=== PATIENT | male | born 1985 | race Caucasian/White ===

== ENCOUNTER 2017-07-27 00:20 | Emergency (ER) | payer SELFPAY ==
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
[2017-07-27] MEDS ORDERED: MORPHINE SULFATE 10 MG/ML INJ IM ONE (01:35)
[2017-07-27] MEDS ORDERED: HYDROMORPHONE HCL INJ/PF 2 MG/ML AMPULE IM ONE (01:38)
[2017-07-27] MEDS ORDERED: HYDROMORPHONE HCL INJ/PF 2 MG/ML AMPULE ONE (01:41)
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
[2017-07-27] MEDS ORDERED: DIAZEPAM INJ 10 MG/2 ML DISP.SYRIN IM ONE (02:53)
[2017-07-27] MEDS ORDERED: HYDROCODONE/ACETAMINOPHEN 5-325 MG (6 TAB/ER DISP) PO PRN (03:56)
[2017-07-27 04:41] VITALS: BP 119/72
== END 2017-07-27 04:57 | disposition home or self-care (01) ==
LOC: ER 00:20
DX: S06.9X9A Unspecified intracranial injury with loss of consciousness of unspecified duration, initial encounter (principal); M25.552 Pain in left hip; M54.5 Low back pain; M54.2 Cervicalgia; R51 Headache; V23.4XXA Motorcycle driver injured in collision with car, pick-up truck or van in traffic accident, initial encounter; Y92.410 Unspecified street and highway as the place of occurrence of the external cause; F17.200 Nicotine dependence, unspecified, uncomplicated; Z87.442 Personal history of urinary calculi
CPT/HCPCS: 99284; 96372; 73502; 72110; 70450; 72125; 72131; J3360; J1170

== ENCOUNTER 2017-10-08 23:47 | Emergency (ER) | payer SELFPAY ==
[2017-10-09] MEDS ORDERED: LIDOCAINE 1% INJ-PF (10 MG/ML) 30 ML SDV INJ ONE (01:17)
[2017-10-09] MEDS ORDERED: CEFTRIAXONE INJ 1000 MG VIAL IM ONE (01:17)
[2017-10-09] MEDS ORDERED: ERYTHROMYCIN 0.5% OPH OINTMENT 3.5 GM (ER DISP) OD PRN (01:17)
[2017-10-09] MEDS ORDERED: OXYCODONE-ACETAMINOPHEN 5-325 MG TABLET PO ONE (01:17)
--- NOTE | 2017-10-09 01:21 | ER Document Report ---
HPI - HPI Patient complains to provider of: Abscess Onset: Other - 4 days Onset/Duration: Persistent Quality of pain: Achy Pain Level: 4 Context: Patient presents complaining of abscess to the left elbow and swelling to the right eyelid. Patient denies any use of glasses or contact lenses. Patient states that he had a pustule that developed to the eyelid and that he attempted to squeeze the lesion and did have some purulent drainage. Patient states that he has had matting to his eye in the morning. 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 denies: Fever Exacerbated by: Movement Relieved by: Denies Similar symptoms previously: Yes Recently seen / treated by doctor: No - ROS ROS below otherwise negative: Yes Systems Reviewed and Negative: Yes All other systems reviewed and negative - CONSTITUTIONAL Constitutional: DENIES: Fever, Chills - EENT EENT: REPORTS: Eye problems. DENIES: Sore Throat, Ear Pain - MUSCULOSKELETAL Musculoskeletal: REPORTS: Extremity pain, Swelling - DERM Skin Color: Erythema Notes: Abscess Past Medical History - General Information source: Patient - Social History Smoking Status: Current Every Day Smoker Chew tobacco use (# tins/day): No Smoking Education Provided: Yes Frequency of alcohol use: Social Drug Abuse: None Occupation: None Lives with: Spouse/Significant other Family History: Reviewed & Not Pertinent Patient has suicidal ideation: No Patient has homicidal ideation: No Renal/ Medical History: Reports: Hx Kidney Stones. Denies: Hx Peritoneal Dialysis Surgical Hx: Negative Past Surgical History: Reports: Hx Thyroid Surgery - lymph node removal in neck. , Other - Lymph node surgery - Immunizations Hx Diphtheria, Pertussis, Tetanus Vaccination: No Vertical Provider Document - CONSTITUTIONAL Agree With Documented VS: Yes Exam Limitations: No Limitations General Appearance: WD/WN, No Apparent Distress - INFECTION CONTROL TRAVEL OUTSIDE OF THE [place] IN LAST 30 DAYS: No - HEENT HEENT: Atraumatic, Normocephalic Notes: Hordeolum to lateral canthus of right eye, mild injection of scleral, extraocular movements intact. No chemosis, proptosis, or ptosis. No orbital swelling or erythema. - NECK Neck: Normal Inspection, Supple - RESPIRATORY Respiratory: Breath Sounds Normal, No Respiratory Distress - CARDIOVASCULAR Cardiovascular: Regular Rate, Regular Rhythm - MUSCULOSKELETAL/EXTREMETIES Musculoskeletal/Extremeties: MAEW, FROM, Tender - Left forearm, Edema - NEURO Level of Consciousness: Awake, Alert, Appropriate Motor/Sensory: No Motor Deficit - DERM Integumentary: Warm, Dry, Abscess - Proximal third of left forearm, patient with full range of motion to the left elbow, no concern for septic joint Course - Re-evaluation Re-evalutation: 10/09/17 01:52 After incision and drainage procedure was performed on the left arm, patient had been squeezing his eyes closed tightly during the procedure and then the swollen area to his eyelid started to drain spontaneously. Culture was obtained from this drainage. - Vital Signs Vital signs: Temp Pulse Resp BP Pulse Ox 97.9 F 100 18 127/79 H 98 10/09/17 00:00 10/09/17 00:00 10/09/17 00:00 10/09/17 00:00 10/09/17 00:00 Procedures - Incision and Drainage Left Arm Type: Simple Anesthetic type: 1% Lidocaine Blade size: 11 I&D procedure: Betadine prep applied Incision Method: Incision made by scalpel Amount/type of drainage: Small amount of purulent drainage Adult Front & Back picture: 1 - Abscess Discharge - Discharge Clinical Impression: Abscess, Encounter for incision and drainage procedure Sty Qualifiers: Laterality: right Eyelid: unspecified eyelid Qualified Code(s): H00.013 - Hordeolum externum right eye, unspecified eyelid Condition: Stable Disposition: HOME, SELF-CARE Instructions: Abscess ([facility]), Cephalexin ([facility]), Oral Narcotic Medication ([facility]), Post Incision and Drainage, Sty ([facility]), Trimethoprim-Sulfa ([facility]), Warm Packs ([facility] ) Additional Instructions: Return immediately for any new or worsening symptoms, or if not improving Followup with your primary care provider, call tomorrow to make a followup appointment Avoid picking and squeezing skin lesions Apply warm compresses to right eye Prescriptions: Cephalexin Monohydrate [Keflex 500 mg Capsule] 500 mg PO Q6H 5 Days capsule Oxycodone HCl/Acetaminophen [Percocet 5-325 mg Tablet] 1 tab PO ASDIR PRN #10 tablet PRN Reason: Sulfamethoxazole/Trimethoprim [Bactrim Ds Tablet] 1 each PO BID #20 tablet Forms: Smoking Cessation Education Referrals: [facility] [Provider Group] - Follow up as needed [facility] [Provider Group] - Follow up as needed
[2017-10-09 02:02] VITALS: BP 135/76
== END 2017-10-09 02:10 | disposition home or self-care (01) ==
LOC: ER 23:47
DX: L02.414 Cutaneous abscess of left upper limb (principal); H00.013 Hordeolum externum right eye, unspecified eyelid; F17.200 Nicotine dependence, unspecified, uncomplicated
CPT/HCPCS: 99283; 87070; 87205; 87077; 87186; 10060; J3490; J0696

== ENCOUNTER 2018-05-26 10:35 | Emergency (ER) | payer SELFPAY ==
[2018-05-26 10:44] VITALS: BP 127/71
[2018-05-26] MEDS ORDERED: KETOROLAC TROMETHAMINE INJ/PF 30 MG/1 ML SDV IV ONE (13:00)
[2018-05-26] MEDS ORDERED: NORMAL SALINE 1000 ML 1,000 ML IV ONE (13:00)
--- NOTE | 2018-05-26 13:04 | ER Document Report ---
ED Medical Screen (RME) - General Chief Complaint: Breathing Difficulty Stated Complaint: DIFFICULTY BREATHING Time Seen by Provider: 05/26/18 12:59 Mode of Arrival: Medic Information source: Patient Notes: Healthy 33-year-old male who presents via EMS for body aches, fevers, chills, cough and congestion. Patient reports his symptoms have been going on for 4 days. He reports he took some Aleve yesterday, has not taken Tylenol as it upsets his stomach. Patient denies any past medical history other than anxiety. Difficulty obtaining through history as patient is very upset and being ve rbally aggressive to staff. Exam: Tachycardic. Lung sounds clear to auscultation bilaterally. I have greeted and performed a rapid initial assessment of this patient. A comprehensive ED assessment and evaluation of the patient, analysis of test results and completion of the medical decision making process will be conducted by additional ED providers. Dictation of this chart was performed using voice recognition software; therefore, there may be some unintended grammatical errors. TRAVEL OUTSIDE OF THE [place] IN LAST 30 DAYS: No - Related Data Allergies/Adverse Reactions: No Known Allergies Allergy (Verified 05/26/18 10:41) Past Medical History Renal/ Medical History: Reports: Hx Kidney Stones. Denies: Hx Peritoneal Dialysis Past Surgical History: Reports: Hx Thyroid Surgery - lymph node removal in neck., Other - Lymph node surgery - Immunizations Hx Diphtheria, Pertussis, Tetanus Vaccination: No Physical Exam - Vital signs Vitals: Temp Pulse Resp BP Pulse Ox 99.9 F 118 H 20 127/71 H 100 05/26/18 10:42 05/26/18 10:42 05/26/18 10:42 05/26/18 10:42 05/26/18 10:42 Course - Vital Signs Vital signs: Temp Pulse Resp BP Pulse Ox 99.9 F 118 H 20 127/71 H 100 05/26/18 10:42 05/26/18 10:42 05/26/18 10:42 05/26/18 10:42 05/26/18 10:42
--- NOTE | 2018-05-26 14:26 | RADIOLOGY REPORT (SQ) ---
EXAM DESCRIPTION: CHEST 2 VIEWS COMPLETED DATE/TIME: 05/26/2018 1:51 pm REASON FOR STUDY: sob, cough, fever COMPARISON: PA chest 03/02/2016 EXAM PARAMETERS: NUMBER OF VIEWS: two views TECHNIQUE: Digital Frontal and Lateral radiographic views of the chest acquired. RADIATION DOSE: NA LIMITATIONS: none FINDINGS: LUNGS AND PLEURA: 2 cm nodule versus infiltrate right upper lobe superimposed on the anter ior right 2nd clear space. Chest CT indicated for followup. No pleural effusion. No pneumothorax. MEDIASTINUM AND HILAR STRUCTURES: No masses or contour abnormalities. HEART AND VASCULAR STRUCTURES: Heart normal size. No evidence for failure. BONES: No acute findings. HARDWARE: None in the chest. OTHER: No other significant finding. IMPRESSION: 2 cm nodule versus infiltrate right upper lung for which CT chest is indicated for noheliao partha TECHNICAL DOCUMENTATION: JOB ID: [id number] [employer]- All Rights Reserved Reading location - IP/workstation name: [email or web address]
== END 2018-05-26 15:46 | disposition left against medical advice (07) ==
LOC: ER 10:35
DX: R06.00 Dyspnea, unspecified (principal); M79.10 Myalgia, unspecified site; R00.0 Tachycardia, unspecified; Z87.442 Personal history of urinary calculi
CPT/HCPCS: 71046; 99281

== ENCOUNTER 2018-06-11 02:41 | Emergency (ER) | payer SELFPAY ==
[2018-06-11] MEDS ORDERED: VANCOMYCIN HCL INJ 1000 MG VIAL IV ONE (02:59)
[2018-06-11] MEDS ORDERED: PIPERACILLIN/TAZOBACTAM 3.375 GM VIAL IV ONE (03:00)
[2018-06-11] MEDS ORDERED: NORMAL SALINE 1000 ML 1,000 ML IV ONE (03:00)
[2018-06-11 03:07] LABS: ABSOLUTE LYMPHOCYTES (AUTO) 1.6 10^3/uL (0.5-4.7); ABSOLUTE MONOCYTES (AUTO) 1.3 10^3/uL (0.1-1.4); ABSOLUTE NEUT (AUTO) 8.3 10^3/uL (1.7-8.2); BASOPHILS % (AUTO) 0.3 % (0-2); EOSINOPHILS % (AUTO) 0.2 % (0-6); HEMATOCRIT 33.3 % (37.9-51.0); HEMOGLOBIN 11.2 g/dL (13.5-17.0); LYMPHOCYTES % (AUTO) 14.4 % (13-45); MEAN CORPUSCULAR HEMOGLOBIN 29.1 pg (27.0-33.4); MEAN CORPUSCULAR HGB CONC 33.7 g/dL (32.0-36.0); MEAN CORPUSCULAR VOLUME 86 fl (80-97); MONOCYTES % (AUTO) 11.8 % (3-13); PLATELET COUNT 534 10^3/uL (150-450); RED BLOOD COUNT 3.86 10^6/uL (4.35-5.55); RED CELL DISTRIBUTION WIDTH 13.9 % (11.5-14.0); SEGMENTED NEUTROPHILS % (AUTO) 73.3 % (42-78); TOTAL CELLS COUNTED % (AUTO) 100 %; WHITE BLOOD COUNT 11.3 10^3/uL (4.0-10.5)
--- NOTE | 2018-06-11 03:09 | ER Document Report ---
Addendum entered and electronically signed by MARGARET EVANS NP 06/11/18 09:55: Course - Re-evaluation Re-evalutation: 06/11/18 09:54 Transport is outside to transport patient to [facility]. Patient is alert, oriented, vital signs are stable at time of transport and patient is in stable condition for the transport. - Vital Signs Vital signs: Temp Pulse Resp BP Pulse Ox 99.3 F 124 H 25 H 138/81 H 97 06/11/18 09:41 06/11/18 02:46 06/11/18 09:18 06/11/18 09:18 06/11/18 09:18 - Laboratory Result Diagrams: 06/11/18 02:48 06/11/18 02:48 Laboratory results interpreted by me: 06/11/18 06/11/18 06/11/18 02:48 02:48 03:05 WBC 11.3 H RBC 3.86 L Hgb 11.2 L Hct 33.3 L Plt Count 534 H Absolute Neutrophils 8.3 H APTT Sodium 136.1 L Chloride 95 L BUN 21 H Lactic Acid < 0.5 L Alkaline Phosphatase 127 H Total Protein 9.1 H Urine Blood 06/11/18 06/11/18 03:05 04:25 WBC RBC Hgb Hct Plt Count Absolute Neutrophils APTT 47.7 H Sodium Chloride BUN Lactic Acid Alkaline Phosphatase Total Protein Urine Blood MODERATE H Original Note: ED General - General Stated Complaint: HIP PAIN Time Seen by Provider: 06/11/18 02:49 Notes: Patient is a 33-year-old male that comes to the emergency department for chief complaint of pain in his left hip, body aches, and a rash that developed over his lower legs over the past 2 days. He comes by EMS, he was found to have a fever of 101.8, he was given 975 mg of Tylenol. Patient tells me that he [facility] secondary to IV drug abuse, he left AGAINST MEDICAL ADVICE 1 week ago. Patient's only reported past medical history otherwise is kidney stones and a lymph node biopsy. TRAVEL OUTSIDE OF THE [place] IN LAST 30 DAYS: No - Related Data Allergies/Adverse Reactions: No Known Allergies Allergy (Verified 05/26/18 10:41) Past Medical History - General Information source: Patient - Social History Smoking Status: Current Every Day Smoker Frequency of alcohol use: Social Drug Abuse: Heroin Lives with: Spouse/Significant other Family History: Reviewed & Not Pertinent Renal/ Medical History: Reports: Hx Kidney Stones. Denies: Hx Peritoneal Dialysis Past Surgical History: Reports: Hx Thyroid Surgery - lymph node removal in neck., Other - Lymph node surgery - Immunizations Hx Diphtheria, Pertussis, Tetanus Vaccination: No Review of Systems - Review of Systems Constitutional: See HPI EENT: No symptoms reported Cardiovascular: No symptoms reported Respiratory: No symptoms reported Gastrointestinal: No symptoms reported Genitourinary: No symptoms reported Male Genitourinary: No symptoms reported Musculoskeletal: See HPI Skin: No symptoms reported Hematologic/Lymphatic: No symptoms reported Neurological/Psychological: No symptoms reported Physical Exam - Vital signs Vitals: Temp Pulse Resp BP Pulse Ox 101.8 F H 124 H 14 156/90 H 97 06/11/18 02:46 06/11/18 02:46 06/11/18 02:46 06/11/18 02:46 06/11/18 02:46 - Notes Notes: GENERAL: Alert, flushed, somewhat ill-appearing, does not appear to be in distress, still conversational HEAD: Normocephalic, atraumatic. EYES: Pupils equal, round, and reactive to light. Extraocular movements intact. ENT: Oral mucosa dry, tongue midline. Oropharynx unremarkable. Airway patent. Nares patent, no nasal septal hematoma, TM's intact. NECK: Full range of motion. Supple. Trachea midline. LUNGS: Clear to auscultation bilaterally, no wheezes, rales, or rhonchi. No respiratory distress. HEART: Tachycardia, normal rhythm, no overt murmur. ABDOMEN: Soft, non-tender. Non-distended. Bowel sounds present in all 4 quadrants. GENITOURINARY: No swelling, rash, or other obvious of normality noted. EXTREMITIES: Moves all 4 extremities spontaneously. No edema, normal radial and dorsalis pedis pulses bilaterally. No cyanosis. BACK: no cervical, thoracic, lumbar midline tenderness. No saddle anesthesia, normal distal neurovascular exam. NEUROLOGICAL: Alert and oriented x3. Normal speech. [cranial nerves II through XII grossly intact]. PSYCH: Normal affect, normal mood. SKIN: Patchy erythematous rash over the both lower extremities mainly over the anterior aspect, no petechiae, vesicles, pustules, bulla, or other abnormalities noted. Course - Re-evaluation Re-evalutation: Patient ill-appearing but alert, he is tachycardic, he is hypoxic on room air at 90%, placed on 2 L nasal cannula, on 2 L nasal cannula he is approximately 95%. He does have a lower extremity rash, scattered and erythematous, probably vasculitis. Even after IV fluids and treatment of fever patient still tachycardic and somewhat hypoxic. Chest x-ray showing possible pneumonia, however based on patient's clinical picture of endocarditis, tachycardia, hypoxia, I suspect he has septic pulmonary emboli. Patient was initiated on vancomycin and Zosyn after IV was established. CBC shows leukocytosis at 11,000 with elevation of neutrophils but no bandemia. Lactic acid is not elevated. Chemistry nonspecific. PTT is increased. 06/11/18 04:40 Spoke with patient, initially he requested to go to [facility]. I did call and speak with Dr. taylor, he was accepted to their service, however aftercalled back they state there is a 12-24-hour bed delay. CTA completed now, this does show septic pulmonary emboli. I spoke with patient again, he states that he is "very sick" which I completely agree with, he states that he is willing to go back to [facility] if this is available first, he "just wants to get better". I did discuss with him that leaving again in his medical advice would probably lead to his . He states understanding. 06/11/18 06:[address] Sigala, hospitalist at [facility], he accepts patient for transfer. 06/11/18 07:35 Transport team in route, report given to Margaret Evans [facility]. - Vital Signs Vital signs: Temp Pulse Resp BP Pulse Ox 98.5 F 124 H 17 146/92 H 92 06/11/18 04:35 06/11/18 02:46 06/11/18 05:00 06/11/18 04:00 06/11/18 05:00 - Laboratory Result Diagrams: 06/11/18 02:48 06/11/18 02:48 Laboratory results interpreted by me: 06/11/18 06/11/18 06/11/18 02:48 02:48 03:05 WBC 11.3 H RBC 3.86 L Hgb 11.2 L Hct 33.3 L Plt Count 534 H Absolute Neutrophils 8.3 H APTT Sodium 136.1 L Chloride 95 L BUN 21 H Lactic Acid < 0.5 L Alkaline Phosphatase 127 H Total Protein 9.1 H Urine Blood 06/11/18 06/11/18 03:05 04:25 WBC RBC Hgb Hct Plt Count Absolute Neutrophils APTT 47.7 H Sodium Chloride BUN Lactic Acid Alkaline Phosphatase Total Protein Urine Blood MODERATE H Critical Care Note - Critical Care Note Total time excluding time spent on procedures (mins): 40 - Endocarditis, septic pulmonary emboli, hypoxia Comments: Please allow 40 minutes of critical care time for evaluation and management of patient with endocarditis, septic pulmonary emboli, tachycardia, hypoxia. Interventions including IV fluids, treatment of fever, pain control, broad- spectrum antibiotics. Multiple re-evaluations. Time spent consulting multiple tertiary centers for transfer. Discharge - Discharge Clinical Impression: Tachycardia, History of endocarditis, IV drug abuse Fever Qualifiers: Fever type: unspecified Qualified Code(s): R50.9 - Fever, unspecified Septic pulmonary embolism Qualifiers: Chronicity: acute Acute cor pulmonale presence: without acute cor pulmonale Qualified Code(s): I26.90 - Septic pulmonary embolism without acute cor pulmonale Condition: Fair Disposition: [facility]
[2018-06-11 03:25] LABS: VENOUS BLOOD HCO3 27.3 mmol/L (20-32); VENOUS BLOOD PCO2 44.9 mmHg (35-63); VENOUS BLOOD PH 7.4 (7.30-7.42)
[2018-06-11 03:29] LABS: ALANINE AMINOTRANSFERASE 23 U/L (21-72); ALKALINE PHOSPHATASE 127 U/L (38-126); ANION GAP 14 (5-19); ASPARTATE AMINO TRANSFERASE 33 U/L (17-59); BILIRUBIN,DIRECT 0.3 mg/dL (0.0-0.4); BILIRUBIN,TOTAL 0.5 mg/dL (0.2-1.3); BLOOD UREA NITROGEN 21 mg/dL (7-20); CALCIUM 9.4 mg/dL (8.4-10.2); CARBON DIOXIDE 27 mmol/L (22-30); CHLORIDE 95 mmol/L (98-107); GLUCOSE 107 mg/dL (75-110); POTASSIUM 4.5 mmol/L (3.6-5.0); SODIUM 136.1 mmol/L (137-145); TOTAL PROTEIN 9.1 g/dL (6.3-8.2)
--- NOTE | 2018-06-11 03:37 | RADIOLOGY REPORT (SQ) ---
EXAM DESCRIPTION: XR CHEST 1 VIEW COMPLETED DATE/TME: 06/11/2018 02:57 CLINICAL HISTORY: 33 years, Male, fever COMPARISON: 05/26/2018 chest NUMBER OF VIEWS: 1 TECHNIQUE: Portable chest LIMITATIONS: None. FINDINGS: Heart size is stable. Stable area of nodularity in the right upper lobe/right suprahilar region measuring 12 mm in size. However there is a new lateral right upper lobe airspace opacity worrisome for pneumonia. In addition there is blunting of the costophrenic angles suggesting tiny bibasilar effusions. No pneumothorax. IMPRESSION: Stable nodular density in the right upper lobe. New airspace opacity in the lateral right upper lobe which may reflect pneumonia. Could consider further assessment with CT. copyright 2010 [employer]- All Rights Reserved
[2018-06-11] MEDS ORDERED: FENTANYL CITRATE INJ/PF 100 MCG/2 ML AMPUL IV ONE (04:35)
[2018-06-11 04:38] LABS: INTERNATIONAL RATION (INR) 1.12
[2018-06-11 04:39] LABS: PARTIAL THROMBOPLASTIN TIME 47.7 SEC (23.5-35.8)
[2018-06-11 04:46] LABS: APPEARANCE,URINE SLIGHTLY-CLOUDY; BILIRUBIN,URINE NEGATIVE (NEGATIVE); COLOR,URINE YELLOW; GLUCOSE, URINE NEGATIVE (NEGATIVE); KETONES,URINE NEGATIVE (NEGATIVE); LEUKOCYTE ESTERASE,URINE NEGATIVE (NEGATIVE); NITRITE,URINE NEGATIVE (NEGATIVE); PROTEIN,URINE NEGATIVE (NEGATIVE); UROBILINOGEN,URINE NEGATIVE mg/dL (<2.0)
--- NOTE | 2018-06-11 05:23 | RADIOLOGY REPORT (SQ) ---
EXAM: CT chest angiography with contrast CLINICAL DATA: 33-year-old male with endocarditis evaluate for possible septic pulmonary emboli. TECHNICAL DATA: Following the administration of intravenous contrast, multiple high-resolution axial images of the chest were performed followed by sagittal and coronal reconstructed images. Coronal oblique MIP images were also performed. The CT study is performed according to ALARA (as low as reasonably achievable) or ALARA/IMAGE GENTLY, with automatic adjustment of mA and/or kV according to patient size. Performed on: 06/11/2018 at 4:50 AM COMPARISONS: Chest x-ray performed on 06/11/2018 at 3:22 AM FINDINGS: There is satisfactory visualization and contrast opacification of pulmonary arteries. No definite intra-arterial filling defects are identified to suggest acute or chronic pulmonary embolism. The thoracic aorta is normal in caliber and contour without evidence of aneurysm or dissection. The lungs are well expanded. There is mild centrilobular emphysema. There are multiple peripheral cavitary lung nodules bilaterally. There are scattered peripheral lung nodules bilaterally and there are occasional subpleural wedge-shaped consolidations best appreciated in the posterior right upper lobe and left lower lobe. This constellation of findings along with the reported clinical history favor septic pulmonary emboli. There are no pleural effusions. There is no pneumothorax. The heart is normal in size. There is no pericardial effusion. There is right hilar lymphadenopathy. No acute osseous abnormality is identified. The visualized upper abdominal structures are unremarkable. IMPRESSION: 1. No CT evidence to suggest acute or chronic pulmonary embolism, aortic aneurysm or aortic dissection. 2. Mild centrilobular emphysema. 3. Multiple peripheral cavitary lung nodules bilaterally, scattered peripheral lung nodules and occasional subpleural wedge-shaped consolidations most likely due to septic pulmonary emboli. 4. Right hilar lymphadenopathy.
[2018-06-11] MEDS ORDERED: HYDROMORPHONE HCL INJ/PF 2 MG/ML AMPULE IV ONE (05:58)
--- NOTE | 2018-06-11 08:23 | EKG REPORT ---
SEVERITY:- ABNORMAL ECG - SINUS TACHYCARDIA BIATRIAL ABNORMALITIES CONSIDER RIGHT VENTRICULAR HYPERTROPHY : Confirmed by: Sharif Garcia MD 11-Jun-2018 08:22:20
[2018-06-11] MEDS ORDERED: PIPERACILLIN/TAZOBACTAM 3.375 GM VIAL IV SCH (09:30)
[2018-06-11 09:43] VITALS: BP 138/81
[2018-06-11] MEDS ORDERED: ACETAMINOPHEN 325 MG TABLET PO ONE (09:46)
== END 2018-06-11 10:00 | disposition short-term general hospital (02) ==
LOC: ER 02:41
DX: I38 Endocarditis, valve unspecified (principal); I26.90 Septic pulmonary embolism without acute cor pulmonale; F11.10 Opioid abuse, uncomplicated; M25.552 Pain in left hip; R21 Rash and other nonspecific skin eruption; F17.200 Nicotine dependence, unspecified, uncomplicated
CPT/HCPCS: 93005; 99291; 96375; 96365; 36415; 87040; 85025; 85610; 85730; 87077; 80053; 81001; 87186; 82803; 83605; 71045; 71275; 93010; J3010; J1170; J7030; J3370; J2543

== ENCOUNTER 2018-09-10 20:13 | Emergency (ER) | payer SELFPAY ==
[2018-09-10] MEDS ORDERED: KETOROLAC TROMETHAMINE INJ/PF 30 MG/1 ML SDV IV ONE (21:18)
[2018-09-10] MEDS ORDERED: NORMAL SALINE 1000 ML 1,000 ML IV ONE (21:18)
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
[2018-09-10 21:26] LABS: ABSOLUTE EOSINOPHILS # (AUTO) 0.2 10^3/uL (0.0-0.6); ABSOLUTE LYMPHOCYTES (AUTO) 3.3 10^3/uL (0.5-4.7); ABSOLUTE MONOCYTES (AUTO) 0.7 10^3/uL (0.1-1.4); ABSOLUTE NEUT (AUTO) 3.5 10^3/uL (1.7-8.2); BASOPHILS % (AUTO) 0.3 % (0-2); EOSINOPHILS % (AUTO) 2.8 % (0-6); HEMATOCRIT 41.3 % (37.9-51.0); LYMPHOCYTES % (AUTO) 42.3 % (13-45); MEAN CORPUSCULAR HEMOGLOBIN 29.4 pg (27.0-33.4); MEAN CORPUSCULAR HGB CONC 33.8 g/dL (32.0-36.0); MEAN CORPUSCULAR VOLUME 87 fl (80-97); MONOCYTES % (AUTO) 9.1 % (3-13); PLATELET COUNT 275 10^3/uL (150-450); RED BLOOD COUNT 4.75 10^6/uL (4.35-5.55); RED CELL DISTRIBUTION WIDTH 14.3 % (11.5-14.0); SEGMENTED NEUTROPHILS % (AUTO) 45.5 % (42-78); TOTAL CELLS COUNTED % (AUTO) 100 %; WHITE BLOOD COUNT 7.7 10^3/uL (4.0-10.5)
[2018-09-10 21:36] LABS: ANION GAP 11 (5-19); BLOOD UREA NITROGEN 15 mg/dL (7-20); CALCIUM 9.4 mg/dL (8.4-10.2); CARBON DIOXIDE 27 mmol/L (22-30); CHLORIDE 103 mmol/L (98-107); GLUCOSE 131 mg/dL (75-110); POTASSIUM 3.9 mmol/L (3.6-5.0); SODIUM 141.1 mmol/L (137-145)
--- NOTE | 2018-09-10 22:06 | RADIOLOGY REPORT (SQ) ---
EXAM DESCRIPTION: XR CHEST 1 VIEW COMPLETED DATE/TME: 09/10/2018 21:17 CLINICAL HISTORY: 33 years, Male, chest pain, syncopal episode COMPARISON: Prior study from 06/11/2018 NUMBER OF VIEWS: One TECHNIQUE: Single frontal view of the chest was obtained. LIMITATIONS: None. FINDINGS: Cardiac and mediastinal contours are normal in appearance. Lungs are clear. No pleural effusion or pneumothorax. IMPRESSION: No acute disease. copyright 2010 [employer]- All Rights Reserved
--- NOTE | 2018-09-10 23:06 | EKG REPORT ---
SEVERITY:- ABNORMAL ECG - SINUS RHYTHM BIATRIAL ABNORMALITIES INCOMPLETE RIGHT BUNDLE BRANCH BLOCK : Confirmed by: Lisa Mendoza 10-Sep-2018 23:06:16
[2018-09-10 23:28] VITALS: BP 130/80
== END 2018-09-10 23:51 | disposition home or self-care (01) ==
LOC: ER 20:13
DX: R55 Syncope and collapse (principal); R07.9 Chest pain, unspecified; W19.XXXA Unspecified fall, initial encounter; F17.200 Nicotine dependence, unspecified, uncomplicated
CPT/HCPCS: 93005; 99284; 96361; 96374; 36415; 85025; 80048; 84484; 71045; 93010; J1885; J7030